=== PATIENT | male | born 1965 | race American Indian/Alaskan Native ===

== ENCOUNTER 2017-01-12 10:58 | Outpatient (CLI) | payer OTHER ==
--- NOTE | 2017-01-12 11:45 | XRay Report ---
CERVICAL SPINE, 3 VIEWS History: Cervical spondylosis. Findings: Anterior fusion changes at C4-5 are stable since 12/08/16. No bony fusion of the disc space is appreciated at this time. Moderate degenerative disc disease at C5-6 and C6-7 are again noted and stable. There is otherwise normal alignment of the cervical vertebral bodies. The posterior elements are unremarkable. No acute process is demonstrated. Impression: Stable appearance of the anterior fusion changes at C4-5 as described above. No significant change since 12/08/16.
== END 2017-01-12 10:59 | disposition home or self-care (01) ==
LOC: SPVIMAG 10:58
PROVIDERS: ATTEND Neurological Surgery
DX: M47.892 Other spondylosis, cervical region (principal); M50.322 Other cervical disc degeneration at C5-C6 level; M50.323 Other cervical disc degeneration at C6-C7 level; M43.22 Fusion of spine, cervical region
CPT/HCPCS: 72040